=== PATIENT | male | born 1935 | race American Indian/Alaskan Native ===

== ENCOUNTER 2018-03-29 14:57 | Inpatient (IN) | payer MEDICARE ==
[2018-03-29] MEDS ORDERED: Sodium Chloride 0.9% 1,000 ML IV ONE (15:58)
--- NOTE | 2018-03-29 16:42 | RAD ---
Date of service: 03/29/2018 PROCEDURE: CHEST RADIOGRAPH, 1 VIEW HISTORY: SOB COMPARISON: None available. FINDINGS: LUNGS: Right lower lobe infiltrate/airspace disease. PLEURA: No pneumothorax or pleural fluid seen. CARDIOVASCULAR: No aortic atherosclerotic calcification present. No radiographic findings to suggest acute or significant cardiovascular disease. OSSEOUS STRUCTURES: No significant abnormalities. VISUALIZED UPPER ABDOMEN: Normal. OTHER FINDINGS: None. IMPRESSION: Right lower lobe infiltrate.
[2018-03-29 16:54] LABS: BASO % 0.5 % (0.0-2.0); EOS # 0.1 K/uL (0.0-0.7); EOS % 0.8 % (0.0-4.0); HEMOGLOBIN 10.1 g/dL (12.0-18.0); LYMPH # 0.5 K/uL (1.0-4.3); MEAN CELL VOLUME 81.8 fL (80.0-94.0); MEAN CORPUSCULAR HGB CONC 31.7 g/dL (33.0-37.0); MONO # 0.6 K/uL (0.0-0.8); MONO % 7.3 % (0.0-10.0); NEUT # 7.3 K/uL (1.8-7.0); NEUT % 85.4 % (50.0-75.0); PLATELET COUNT 275 K/uL (130-400); RED CELL DISTRIBUTION WIDTH 15.5 % (11.5-14.5); WHITE BLOOD COUNT 8.6 K/uL (4.8-10.8)
[2018-03-29 17:10] LABS: ALT/SGPT < 6 U/L (21-72); AST/SGOT 19 U/L (17-59); BLOOD UREA NITROGEN 15 mg/dL (9-20); CALCIUM 9.1 mg/dl (8.6-10.4); GFR NON-AFRICAN AMERICAN > 60
--- NOTE | 2018-03-29 17:19 | C.PDOC ---
History Of Present Illness 83 y/o male,w/PMhx of HTN, COPD, and hypercholesterolemia, brought to ER by ambulance with neighbor for failure tor thrive for the past several weeks. 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 Patient has poor appetite with poor PO intake and constipation. Patient states that his vision is deteriorating and his neighbor reports periods of confusion and disorientation. He has difficulty taking care of himself and walking. Neighbor states that she is taking care of him because he cannot manage for himself. Contrary to triage, patient denies SOB, CP, fever, chills, and pain. Time Seen by Provider: 03/29/18 15:47 Chief Complaint (Nursing): Shortness Of Breath History Per: Patient History/Exam Limitations: no limitations Onset/Duration Of Symptoms: Days Current Symptoms Are (Timing): Still Present Severity: Moderate Past Medical History Reviewed: Historical Data, Nursing Documentation, Vital Signs Vital Signs: Last Vital Signs Temp 98.5 F 03/29/18 15:01 Pulse 80 03/29/18 17:02 Resp 19 03/29/18 17:02 BP 169/77 H 03/29/18 17:02 Pulse Ox 98 03/29/18 17:02 - Medical History PMH: Hypercholesterolemia, Hyperlipidemia Surgical History: No Surg Hx Family History: States: No Known Family Hx - Social History Hx Alcohol Use: Yes Hx Substance Use: No - Immunization History Hx Tetanus Toxoid Vaccination: No Hx Influenza Vaccination: No Review Of Systems Constitutional: Positive for: Other (decreased appetite). Negative for: Fever, Chills Cardiovascular: Negative for: Chest Pain Respiratory: Negative for: Shortness of Breath Gastrointestinal: Positive for: Constipation. Negative for: Nausea, Vomiting, A bdominal Pain Physical Exam - Physical Exam Appears: Non-toxic, No Acute Distress, Other (comfortable, awake,alert) Skin: Normal Color, Warm, Dry Head: Atraumatic, Normacephalic Eye(s): bilateral: Normal Inspection, Other (sees shadows) Nose: Normal Oral Mucosa: Dry Tongue: Other (thick phlegm on tongue) Neck: Supple Chest: Symmetrical Cardiovascular: Rhythm Irregular (mildly tachycardiac) Respiratory: Normal Breath Sounds, No Rales, No Rhonchi, No Wheezing Gastrointestinal/Abdominal: Normal Exam, Soft, No Tenderness, No Hernia Neurological/Psych: Oriented x3, Normal Speech ED Course And Treatment - Laboratory Results Result Diagrams: 03/29/18 16:44 03/29/18 16:44 Lab Interpretation: Abnormal (Hgb 10.1, Hct 31.9, HCO3 40 Glucose 201) ECG: Interpreted By Me ECG Rhythm: Sinus Rhythm ECG Interpretation: No Acute Changes O2 Sat by Pulse Oximetry: 98 (RA) Pulse Ox Interpretation: Normal - Radiology CXR: Viewed By Me, Read By Radiologist CXR Interpretation: Yes: Infiltrates (RLL) Progress Note: Patient treated with Rocephin and Zithromax in ED. Reevaluation Time: 18:18 Reassessment Condition: Improved - Physician Consult Information Time Consulting Physician Contacted: 18:18 Physician Contacted: Gil Colvin Outcome Of Conversation: Patient to be admitted for treatment of pneumonia and possible placement in a prison facility. Medical Decision Making Medical Decision Making: Plan: --Labs --EKG --CXR --UA --IV Fluids Disposition - Disposition Disposition: HOSPITALIZED Disposition Time: 18:21 Condition: FAIR - POA Present On Arrival: None - Clinical Impression Clinical Impression: Pneumonia - Scribe Statement The provider has reviewed the documentation as recorded by the Milagros Vanegas Provider Attestation: All medical record entries made by the Scribe were at my direction and personally dictated by me. I have reviewed the chart and agree that the record accurately reflects my personal performance of the history, physical exam, medical decision making, and the department course for this patient. I have also personally directed, reviewed, and agree with the discharge instructions and disposition.
--- NOTE | 2018-03-29 17:20 | C.PDOC ---
Time Seen by Provider: 03/29/18 15:47 Chief Complaint (Nursing): Shortness Of Breath Past Medical History Vital Signs: Last Vital Signs Temp 98.5 F 03/29/18 15:01 Pulse 80 03/29/18 17:02 Resp 19 03/29/18 17:02 BP 169/77 H 03/29/18 17:02 Pulse Ox 98 03/29/18 17:02 - Medical History PMH: Hypercholesterolemia, Hyperlipidemia - Social History Hx Alcohol Use: Yes Hx Substance Use: No - Immunization History Hx Tetanus Toxoid Vaccination: No Hx Influenza Vaccination: No ED Course And Treatment - Laboratory Results Result Diagrams: 03/29/18 16:44 03/29/18 16:44 O2 Sat by Pulse Oximetry: 98 Disposition - Disposition
[2018-03-29 18:01] LABS: ANISOCYTOSIS SLIGHT; HYPOCHROMIC SLIGHT; LYMPHOCYTE 7 % (20-40); MONOCYTE 7 % (0-10); NEUTROPHIL 86 % (50-75); PLATELET ESTIMATE NORMAL (NORMAL); TOTAL CELLS COUNTED 100
[2018-03-29 18:02] LABS: POLYCHROMIC SLIGHT
[2018-03-29] MEDS ORDERED: cefTRIAXone IV 1 gm in Dextros 50 ML IVPB ONE (18:16)
[2018-03-29] MEDS ORDERED: Azithromycin 500mg/250ML NS 500 MG/250 ML BAG IV ONE (18:30)
[2018-03-29 19:16] LABS: URINE BILIRUBIN NEGATIVE (NEGATIVE); URINE BLOOD 1+ (NEGATIVE); URINE CLARITY Clear (Clear); URINE COLOR Yellow (YELLOW); URINE GLUCOSE (UA) 1+ mg/dL (Normal); URINE LEUKOCYTE ESTERASE NEG Leu/uL (Negative); URINE PROTEIN 1+ mg/dL (NEGATIVE); URINE UROBILINOGEN NORMAL mg/dL (0.2-1.0)
[2018-03-29] MEDS ORDERED: Azithromycin 500mg/250ML NS 500 MG/250 ML BAG IVPB ONE (19:17)
[2018-03-29] MEDS ORDERED: cefTRIAXone 1 gm 1 GM/100 ML BAG IVPB ONE (19:17)
[2018-03-29] MEDS: Albuterol-Ipratrop 3 mg / 0.5 (3 ml) UD INH SCH (20:42)
[2018-03-29 20:46] LABS: VENOUS BLOOD GAS BASE EXCESS 12.7 mmol/L (0.0-2.0); VENOUS BLOOD GAS PCO2 78 mmHg (40-60); VENOUS BLOOD GAS PO2 34 mm/Hg (30-55); VENOUS BLOOD PH 7.34 (7.32-7.43)
[2018-03-29] MEDS: Rosuvastatin Calcium 2.5 mg Tab PO SCH (21:42)
[2018-03-29] MEDS: Latanoprost 2.5 ml Opht Soln OU SCH (21:43)
[2018-03-29] MEDS: (Novolin R) Insulin Human Regular 100 units/ml vial SC SCH (21:48)
--- NOTE | 2018-03-29 22:32 | CP.PCM.HP ---
Past Patient History - Past Medical History & Family History Past Medical History?: No - Past Social History Smoking Status: Former Smoker - CARDIAC Hx Hypercholesterolemia: Yes - NEUROLOGICAL Other/Comment: Growth in brain, fluid accumulation - HEMATOLOGICAL/ONCOLOGICAL Hx Blood Disorders: No Hx Anemia: Yes - INTEGUMENTARY Hx Dermatological Problems: No - MUSCULOSKELETAL/RHEUMATOLOGICAL Hx Falls: No - GASTROINTESTINAL Hx Gastrointestinal Disorders: No - GENITOURINARY/GYNECOLOGICAL Hx Prostate Problems: Yes - PSYCHIATRIC Hx Substance Use: No - SURGICAL HISTORY Hx Surgeries: Yes - ANESTHESIA Hx Anesthesia: No Hx Anesthesia Reactions: No Hx Malignant Hyperthermia: No Has any member of the family had a problem w/ anesthesia?: No Meds Allergies/Adverse Reactions: Allergies Allergy/AdvReac Type Severity Reaction Status Date / Time No Known Allergies Allergy Unverified 03/29/18 15:02 Results - Vital Signs Recent Vital Signs: Last Vital Signs Temp 98.5 F 03/29/18 15:01 Pulse 69 03/29/18 19:17 Resp 22 03/29/18 21:00 BP 153/78 H 03/29/18 19:17 Pulse Ox 97 03/29/18 21:00 - Labs Result Diagrams: 03/29/18 16:44 03/29/18 16:44 Labs: Laboratory Results - last 24 hr 03/29/18 03/29/18 03/29/18 16:44 16:44 19:05 WBC 8.6 RBC 3.90 L Hgb 10.1 L Hct 31.9 L MCV 81.8 MCH 26.0 L MCHC 31.7 L RDW 15.5 H Plt Count 275 MPV 8.0 Neut % (Auto) 85.4 H Lymph % (Auto) 6.0 L [place] % (Auto) 7.3 Eos % (Auto) 0.8 Baso % (Auto) 0.5 Neut # (Auto) 7.3 H Lymph # (Auto) 0.5 L [place] # (Auto) 0.6 Eos # (Auto) 0.1 Baso # (Auto) 0.0 Neutrophils % (Manual) 86 H Lymphocytes % (Manual) 7 L Monocytes % (Manual) 7 Platelet Estimate Normal Polychromasia Slight Hypochromasia (manual) Slight Anisocytosis (manual) Slight pO2 VBG pH VBG pCO2 VBG HCO3 VBG Total CO2 VBG O2 Sat (Calc) VBG Base Excess VBG Potassium Glucose Lactate Crit Value Called To Crit Value Called By Crit Value Read Back Blood Gas Notified Time Sodium 140 Potassium 4.2 Chloride 94 L Carbon Dioxide 40 H* Anion Gap 10 BUN 15 Creatinine 0.9 Est GFR ( Amer) > 60 Est GFR (Non-Af Amer) > 60 POC Glucose (mg/dL) Random Glucose 201 H Calcium 9.1 Magnesium 1.9 Total Bilirubin 0.5 AST 19 ALT < 6 L Alkaline Phosphatase 66 Total Protein 8.1 Albumin 4.0 Globulin 4.1 H Albumin/Globulin Ratio 1.0 Venous Blood Potassium Urine Color Yellow Urine Clarity Clear Urine pH 5.0 Ur Specific [place] 1.017 Urine Protein 1+ H Urine Glucose (UA) 1+ H Urine Ketones Negative Urine Blood 1+ H Urine Nitrate Negative Urine Bilirubin Negative Urine Urobilinogen Normal Ur Leukocyte Esterase Neg Urine WBC (Auto) 2 Urine RBC (Auto) 3 03/29/18 03/29/18 20:35 21:26 WBC RBC Hgb Hct MCV MCH MCHC RDW Plt Count MPV Neut % (Auto) Lymph % (Auto) [place] % (Auto) Eos % (Auto) Baso % (Auto) Neut # (Auto) Lymph # (Auto) [place] # (Auto) Eos # (Auto) Baso # (Auto) Neutrophils % (Manual) Lymphocytes % (Manual) Monocytes % (Manual) Platelet Estimate Polychromasia Hypochromasia (manual) Anisocytosis (manual) pO2 34 VBG pH 7.34 VBG pCO2 78 H* VBG HCO3 33.9 VBG Total CO2 44.5 H VBG O2 Sat (Calc) 68.2 H VBG Base Excess 12.7 H VBG Potassium 4.9 Glucose 121 H Lactate 1.0 Crit Value Called To Crit Value Called By Gillian molina rcp Crit Value Read Back Y Blood Gas Notified Time 2046 Sodium 143.0 Potassium Chloride 108.0 H Carbon Dioxide Anion Gap BUN Creatinine Est GFR ( Amer) Est GFR (Non-Af Amer) POC Glucose (mg/dL) 111 H Random Glucose Calcium Magnesium Total Bilirubin AST ALT Alkaline Phosphatase Total Protein Albumin Globulin Albumin/Globulin Ratio Venous Blood Potassium 4.9 Urine Color Urine Clarity Urine pH Ur Specific [place] Urine Protein Urine Glucose (UA) Urine Ketones Urine Blood Urine Nitrate Urine Bilirubin Urine Urobilinogen Ur Leukocyte Esterase Urine WBC (Auto) Urine RBC (Auto)
[2018-03-30] MEDS: MethylPREDNISolone 40 mg Vial IVP SCH ×4 (00:46→18:17)
[2018-03-30] MEDS: Albuterol-Ipratrop 3 mg / 0.5 (3 ml) UD INH SCH ×6 (01:47→21:25)
[2018-03-30 01:50] VITALS: RESP 20
--- NOTE | 2018-03-30 07:14 | HP ---
CHIEF COMPLAINT: Dizziness. HISTORY OF PRESENT ILLNESS: This is an 83-year-old male, well known to me, with history of chronic obstructive pulmonary disease, hypertension, hyperlipidemia, and type 2 diabetes. The patient is on multiple medications, and the patient is being cared by a friend who helps him with activities of daily living. The patient in his usual status of health. He is bed bound, home bound, and wheelchair bound, and he is fully dependent on his friend for activities of daily living. The patient had a questionable history of, diagnosed with intracranial mass in his brain with fluid accumulation according to his friend. The patient was early in [facility] in [place]. The friend spoke to me that she brought the patient to the emergency room as the patient has poor appetite, inability to try when he is not taking his medication, diet, and he is constipated. He is also recently deteriorating, and he gets confused and delirious. The patient is not able to take care of his health and his activities of daily living. The patient is more coherent now, and according to the patient, he has been having cough and congestion. He denies any shortness of breath. He denies any nausea, vomiting, or diarrhea. He denies any history of polyuria, polydipsia, or polyphagia. He denies any history of hematuria or pyuria. He has nasal congestion. He denies any sneezing. He denies any abdominal pain, nausea, vomiting, or diarrhea. There is no history of trauma, fall, or loss of consciousness. No history of seizure-like activity. Compliance with medication is questionable. CURRENT MEDICATIONS AT HOME: Ventolin HFA, Flonase nose spray, Xalatan eyedrops, BuSpar, Tessalon, Feosol, multivitamin, Avalide, Pravachol, Xyzal, Proscar, and Tenormin. SOCIAL HISTORY: Nonsmoker. Non-ETOH user. PAST MEDICAL HISTORY: Hypertension, diabetes, COPD, hyperlipidemia, osteoarthritis, and there is a history of questionable mass in the brain. PHYSICAL EXAMINATION: GENERAL: An elderly male, who is awake and alert. He is answering questions, but he has periods of confusion. He is on oxygen. He is in minimal respiratory distress. VITAL SIGNS: Blood pressure 152/78, pulse 69, respiratory rate , and temperature 98. SKIN: Senile turgor. No bruises. No purpura. No petechiae. HEENT: Atraumatic, normocephalic. Negative pallor. Negative jaundice. Right-sided eye has ptosis. Left-sided eye is clear and opens. NECK: Supple. No JVD. No lymph node. No thyromegaly. No carotid bruit. The patient is using accessory muscle of respiration. CHEST WALL: Barrel-shaped chest. No masses. No . No deformity. LUNGS: Bilateral inspiratory and expiratory rhonchi. Decreased air entry with basal crepitation in the right base. CARDIOVASCULAR SYSTEM: PMI not localized. S1 and S2, regular and tachycardic. ABDOMEN: Soft, nontender. Bowel sounds are positive. RECTAL: Enlarged prostate. No masses. No bleed. EXTREMITIES: No clubbing, cyanosis, or edema. Peripheral pulses including bilateral dorsalis pedis and posterior tibial are +2. CENTRAL NERVOUS SYSTEM: The patient is awake and alert. The patient is confused and delirious. ASSESSMENT: 1. Right lower lobe pneumonia. 2. Exacerbation of chronic obstructive pulmonary disease. 3. Hypertension. 4. Type 2 diabetes. PLAN: We will get old record from [facility]. Antibiotics. Also give Zithromax, nebulizers, fluids. Monitor the patient. The patient's CBC, blood gas have all been noted, and the patient will be followed up closely. Gil Colvin MD
[2018-03-30] MEDS: Tiotropium 18 mcg Cap For Inhalation INH SCH (08:20)
[2018-03-30] MEDS: Albuterol HFA 90 mcg/actuation (8 g) INH SCH (08:21)
[2018-03-30] MEDS: Enoxaparin 40 mg Syringe SC SCH (09:55)
[2018-03-30] MEDS: Fluticasone Nasal 50 mcg/Spray NAS SCH (09:56)
[2018-03-30] MEDS: (Novolin R) Insulin Human Regular 100 units/ml vial SC SCH ×4 (09:56→21:07)
[2018-03-30] MEDS: Azithromycin 500 MG in Sodium Chloride 0.9% 250 ML IVPB SCH (12:49)
--- NOTE | 2018-03-30 17:42 | CP.PCM.CON ---
History of Present Illness - History of Present Illness History of Present Illness: 3 year old AA male presents with dizziness to hospital. Pulmonology is being consulted because of evidence of PNA and SOB. He is bed, wheelchair, and home bound and has a friend who helps with his ADL's. According to his friend, the stella damon has a history of an "intracranial mass". The patient was brought to [facility] in [place] recently due to loss of appetite and constipation, as well as change in mental status and confusion. The patient today states that he has continued cough and congestion. He denies SOB, chest pain, headache, N/V/D. His compliance with his home medications is questionable. CXR on 03/29/18 showed right lower lob infiltrate. On physical exam, a barrel shaped chest is noted as well as b/l inspiratory and expiratory rhonchi. There is decreased air entry with basal crepitation in the right base. ABG's show that patient is a chronic retainer and will benefit from BiPAP. Medications: Ventolin HFA, Flonase nose spray, Xalatan eye drops, BuSpar, Tessalon, Feosol, Multivitamin, Avalide, Pravachol, Xyzal, Proscar, and Tenormin PMH: COPD, HTN, Hyperlipidemia, DM2 PSH: Unknown FHx: Unknown Social Hx: Denies smoking, alcohol, illicit drugs Plan: Continue Azithromycin Repeat ABG's BiPAP, nebulizer, peak flow, and fluids to help with breathing/hydration. Past Patient History - Past Medical History & Family History Past Medical History?: No - Past Social History Smoking Status: Former Smoker - CARDIAC Hx Hypercholesterolemia: Yes - NEUROLOGICAL Other/Comment: Growth in brain, fluid accumulation - HEMATOLOGICAL/ONCOLOGICAL Hx Blood Disorders: No Hx Anemia: Yes - INTEGUMENTARY Hx Dermatological Problems: No - MUSCULOSKELETAL/RHEUMATOLOGICAL Hx Falls: No - GASTROINTESTINAL Hx Gastrointestinal Disorders: No - GENITOURINARY/GYNECOLOGICAL Hx Prostate Problems: Yes - PSYCHIATRIC Hx Substance Use: No - SURGICAL HISTORY Hx Surgeries: Yes - ANESTHESIA Hx Anesthesia: No Hx Anesthesia Reactions: No Hx Malignant Hyperthermia: No Has any member of the family had a problem w/ anesthesia?: No Meds Allergies/Adverse Reactions: Allergies Allergy/AdvReac Type Severity Reaction Status Date / Time No Known Allergies Allergy Unverified 03/29/18 15:02 - Medications Medications: Current Medications Albuterol (Ventolin Hfa 90 Mcg/Actuation (8 G)) 2 puff INH RQD [facility] Last Admin: 03/30/18 08:21 Dose: Not Given Albuterol/Ipratropium (Duoneb 3 Mg/0.5 Mg (3 Ml) Ud) 3 ml INH RQ6 [facility] Last Admin: 03/30/18 13:40 Dose: 3 ml Atenolol (Tenormin) 50 mg PO HS [facility] Last Admin: 03/29/18 21:42 Dose: 50 mg Benzonatate (Tessalon Perles) 100 mg PO TID [facility] Last Admin: 03/30/18 13:40 Dose: 100 mg Buspirone HCl (Buspar) 10 mg PO BID [facility] Last Admin: 03/30/18 09:54 Dose: 10 mg Enoxaparin Sodium (Lovenox) 40 mg SC DAILY [facility] Last Admin: 03/30/18 09:55 Dose: 40 mg Ferrous Sulfate (Feosol) 325 mg PO BID [facility] Last Admin: 03/30/18 09:55 Dose: 325 mg Finasteride (Proscar) 5 mg PO HS [facility] Last Admin: 03/29/18 21:42 Dose: 5 mg Fluticasone Propionate (Flonase) 1 spr JUAN MIGUEL DAILY [facility] Last Admin: 03/30/18 09:56 Dose: 1 spr Hydrochlorothiazide (Microzide) 12.5 mg PO DAILY [facility] Last Admin: 03/30/18 09:54 Dose: 12.5 mg Ceftriaxone Sodium 1 gm/ (Sodium Chloride) 100 mls @ 100 mls/hr IVPB DAILY [facility]; Protocol Last Admin: 03/30/18 09:39 Dose: 100 mls/hr Azithromycin 500 mg/ Sodium (Chloride) 250 mls @ 250 mls/hr IVPB DAILY [facility]; Protocol Last Admin: 03/30/18 12:49 Dose: 250 mls/hr Insulin Human Regular (Novolin R) 0 unit SC ACHS [facility]; Protocol Last Admin: 03/30/18 12:26 Dose: 2 units Latanoprost (Xalatan Opht) 0 ml OU HS [facility] Last Admin: 03/29/18 21:43 Dose: 2.5 ml Losartan Potassium (Cozaar) 100 mg PO DAILY [facility] Last Admin: 03/30/18 09:55 Dose: 100 mg Methylprednisolone (Solu-Medrol) 40 mg IVP Q6H [facility] Last Admin: 03/30/18 12:26 Dose: 40 mg Rosuvastatin Calcium (Crestor) 2.5 mg PO HS [facility] Last Admin: 03/29/18 21:42 Dose: 2.5 mg Tiotropium [place] (Spiriva) 18 mcg INH RQ24 [facility] Last Admin: 03/30/18 08:20 Dose: Not Given Results - Vital Signs Recent Vital Signs: Last Vital Signs Temp 97.7 F 03/30/18 16:00 Pulse 80 03/30/18 16:00 Resp 20 03/30/18 16:00 BP 175/86 H 03/30/18 16:00 Pulse Ox 97 03/30/18 16:00 - Labs Result Diagrams: 03/29/18 16:44 03/29/18 16:44 Labs: Laboratory Results - last 24 hr 03/29/18 03/29/18 03/29/18 16:44 19:05 20:35 Neutrophils % (Manual) 86 H Lymphocytes % (Manual) 7 L Monocytes % (Manual) 7 Platelet Estimate Normal Polychromasia Slight Hypochromasia (manual) Slight Anisocytosis (manual) Slight pO2 34 VBG pH 7.34 VBG pCO2 78 H* VBG HCO3 33.9 VBG Total CO2 44.5 H VBG O2 Sat (Calc) 68.2 H VBG Base Excess 12.7 H VBG Potassium 4.9 Sodium 143.0 Chloride 108.0 H Glucose 121 H Lactate 1.0 Crit Value Called To Crit Value Called By Gillian molina rcp Crit Value Read Back Y Blood Gas Notified Time 2046 POC Glucose (mg/dL) Venous Blood Potassium 4.9 Urine Color Yellow Urine Clarity Clear Urine pH 5.0 Ur Specific [place] 1.017 Urine Protein 1+ H Urine Glucose (UA) 1+ H Urine Ketones Negative Urine Blood 1+ H Urine Nitrate Negative Urine Bilirubin Negative Urine Urobilinogen Normal Ur Leukocyte Esterase Neg Urine WBC (Auto) 2 Urine RBC (Auto) 3 03/29/18 03/30/18 03/30/18 21:26 07:15 11:47 Neutrophils % (Manual) Lymphocytes % (Manual) Monocytes % (Manual) Platelet Estimate Polychromasia Hypochromasia (manual) Anisocytosis (manual) pO2 VBG pH VBG pCO2 VBG HCO3 VBG Total CO2 VBG O2 Sat (Calc) VBG Base Excess VBG Potassium Sodium Chloride Glucose Lactate Crit Value Called To Crit Value Called By Crit Value Read Back Blood Gas Notified Time POC Glucose (mg/dL) 111 H 100 180 H Venous Blood Potassium Urine Color Urine Clarity Urine pH Ur Specific [place] Urine Protein Urine Glucose (UA) Urine Ketones Urine Blood Urine Nitrate Urine Bilirubin Urine Urobilinogen Ur Leukocyte Esterase Urine WBC (Auto) Urine RBC (Auto) 03/30/18 16:12 Neutrophils % (Manual) Lymphocytes % (Manual) Monocytes % (Manual) Platelet Estimate Polychromasia Hypochromasia (manual) Anisocytosis (manual) pO2 VBG pH VBG pCO2 VBG HCO3 VBG Total CO2 VBG O2 Sat (Calc) VBG Base Excess VBG Potassium Sodium Chloride Glucose Lactate Crit Value Called To Crit Value Called By Crit Value Read Back Blood Gas Notified Time POC Glucose (mg/dL) 253 H Venous Blood Potassium Urine Color Urine Clarity Urine pH Ur Specific [place] Urine Protein Urine Glucose (UA) Urine Ketones Urine Blood Urine Nitrate Urine Bilirubin Urine Urobilinogen Ur Leukocyte Esterase Urine WBC (Auto) Urine RBC (Auto)
[2018-03-30 20:31] LABS: ABG ALLEN TEST POS; ARTERIAL BLOOD GAS HCO3 32.7 mmol/L (21-28); ARTERIAL BLOOD GAS HEMOGLOBIN 9.4 g/dL (11.7-17.4); ARTERIAL BLOOD GAS O2 SAT 99.8 % (95-98); ARTERIAL BLOOD GAS PCO2 52 mm/Hg (35-45); ARTERIAL BLOOD GAS PH 7.44 (7.35-7.45); ARTERIAL BLOOD GAS PO2 94 mm/Hg (80-100); ARTERIAL BLOOD GAS TCO2 36.9 mmol/L (22-28)
[2018-03-30] MEDS: Rosuvastatin Calcium 2.5 mg Tab PO SCH (21:04)
[2018-03-30] MEDS: Latanoprost 2.5 ml Opht Soln OU SCH (21:07)
[2018-03-31] MEDS: MethylPREDNISolone 40 mg Vial IVP SCH ×4 (00:02→17:55)
--- NOTE | 2018-03-31 00:51 | CP.PCM.PN ---
Subjective - Date & Time of Evaluation Date of Evaluation: 03/30/18 - Subjective Subjective: dictated Objective - Vital Signs/Intake and Output Vital Signs (last 24 hours): Temp Pulse Resp BP Pulse Ox 97.9 F 71 20 157/71 H 98 03/31/18 00:00 03/31/18 00:00 03/31/18 00:00 03/31/18 00:00 03/31/18 00:00 Intake and Output: 03/30/18 03/31/18 18:59 06:59 Intake Total 620 350 Output Total 650 500 Balance -30 -150 - Medications Medications: Current Medications Albuterol (Ventolin Hfa 90 Mcg/Actuation (8 G)) 2 puff INH RQD [facility] Last Admin: 03/30/18 08:21 Dose: Not Given Albuterol/Ipratropium (Duoneb 3 Mg/0.5 Mg (3 Ml) Ud) 3 ml INH RQ6 [facility] Last Admin: 03/30/18 21:25 Dose: 3 ml Atenolol (Tenormin) 50 mg PO HS [facility] Last Admin: 03/30/18 21:04 Dose: 50 mg Benzonatate (Tessalon Perles) 100 mg PO TID [facility] Last Admin: 03/30/18 18:15 Dose: 100 mg Buspirone HCl (Buspar) 10 mg PO BID [facility] Last Admin: 03/30/18 18:15 Dose: 10 mg Enoxaparin Sodium (Lovenox) 40 mg SC DAILY [facility] Last Admin: 03/30/18 09:55 Dose: 40 mg Ferrous Sulfate (Feosol) 325 mg PO BID [facility] Last Admin: 03/30/18 18:15 Dose: 325 mg Finasteride (Proscar) 5 mg PO HS [facility] Last Admin: 03/30/18 21:19 Dose: 5 mg Fluticasone Propionate (Flonase) 1 spr JUAN MIGUEL DAILY [facility] Last Admin: 03/30/18 09:56 Dose: 1 spr Hydrochlorothiazide (Microzide) 12.5 mg PO DAILY [facility] Last Admin: 03/30/18 09:54 Dose: 12.5 mg Ceftriaxone Sodium 1 gm/ (Sodium Chloride) 100 mls @ 100 mls/hr IVPB DAILY [facility]; Protocol Last Admin: 03/30/18 09:39 Dose: 100 mls/hr Azithromycin 500 mg/ Sodium (Chloride) 250 mls @ 250 mls/hr IVPB DAILY [facility]; Protocol Last Admin: 03/30/18 12:49 Dose: 250 mls/hr Insulin Human Regular (Novolin R) 0 unit SC ACHS [facility]; Protocol Last Admin: 03/30/18 21:07 Dose: Not Given Latanoprost (Xalatan Opht) 0 ml OU HS [facility] Last Admin: 03/30/18 21:07 Dose: 2.5 ml Losartan Potassium (Cozaar) 100 mg PO DAILY [facility] Last Admin: 03/30/18 09:55 Dose: 100 mg Methylprednisolone (Solu-Medrol) 40 mg IVP Q6H [facility] Last Admin: 03/31/18 00:02 Dose: 40 mg Rosuvastatin Calcium (Crestor) 2.5 mg PO HS [facility] Last Admin: 03/30/18 21:04 Dose: 2.5 mg Tiotropium [place] (Spiriva) 18 mcg INH RQ24 [facility] Last Admin: 03/30/18 08:20 Dose: Not Given - Labs Labs: 03/29/18 16:44 03/29/18 16:44
[2018-03-31] MEDS: Albuterol-Ipratrop 3 mg / 0.5 (3 ml) UD INH SCH ×4 (01:40→20:21)
--- NOTE | 2018-03-31 05:02 | PN ---
DATE: 03/30/2018 SUBJECTIVE: The patient is coughing, wheezing. He is less short of breath. He is weak. He is on BiPAP. No chest pain. No nausea or vomiting. PHYSICAL EXAMINATION: VITAL SIGNS: Blood pressure 157/71, pulse 71, respiratory rate 20, temperature 97.9. LUNGS: Decreased air entry. Positive rhonchi. CARDIOVASCULAR SYSTEM: PMI not localized. S1 and S2 are regular. ABDOMEN: Soft and nontender. Bowel sounds are positive. ASSESSMENT: 1. Right lower lobe pneumonia. 2. Exacerbation of chronic obstructive pulmonary disease. 3. Diabetes. 4. Hypertension. PLAN: BiPAP, Solu-Medrol, oxygen and antibiotics. Gil Colvin MD
[2018-03-31] MEDS: (Novolin R) Insulin Human Regular 100 units/ml vial SC SCH ×4 (08:30→21:45)
[2018-03-31 08:41] LABS: BASO # 0.1 K/uL (0.0-0.2); BASO % 0.5 % (0.0-2.0); HEMOGLOBIN 10.2 g/dL (12.0-18.0); LYMPH # 0.6 K/uL (1.0-4.3); LYMPH % 5.5 % (20.0-40.0); MEAN CELL VOLUME 80.4 fL (80.0-94.0); MEAN CORPUSCULAR HEMOGLOBIN 25.9 pg (27.0-31.0); MEAN CORPUSCULAR HGB CONC 32.2 g/dL (33.0-37.0); MEAN PLATELET VOLUME 8.5 fL (7.2-11.7); MONO # 0.3 K/uL (0.0-0.8); MONO % 2.6 % (0.0-10.0); NEUT # 9.4 K/uL (1.8-7.0); NEUT % 91.4 % (50.0-75.0); PLATELET COUNT 316 K/uL (130-400); RBC 3.93 Mil/uL (4.40-5.90); RED CELL DISTRIBUTION WIDTH 14.7 % (11.5-14.5); WHITE BLOOD COUNT 10.3 K/uL (4.8-10.8)
[2018-03-31 08:54] LABS: BLOOD UREA NITROGEN 17 mg/dL (9-20); CALCIUM 9.2 mg/dl (8.6-10.4); GFR NON-AFRICAN AMERICAN > 60
[2018-03-31] MEDS: Albuterol HFA 90 mcg/actuation (8 g) INH SCH (09:29)
[2018-03-31] MEDS: Tiotropium 18 mcg Cap For Inhalation INH SCH (09:29)
[2018-03-31 09:52] LABS: LYMPHOCYTE 4 % (20-40); MONOCYTE 1 % (0-10); NEUTROPHIL 95 % (50-75); PLATELET ESTIMATE NORMAL (NORMAL); TOTAL CELLS COUNTED 100
[2018-03-31 09:55] LABS: ANISOCYTOSIS SLIGHT; HYPOCHROMIC SLIGHT; POIKILOCYTOSIS SLIGHT
[2018-03-31] MEDS: Enoxaparin 40 mg Syringe SC SCH (10:53)
[2018-03-31] MEDS: Fluticasone Nasal 50 mcg/Spray NAS SCH (10:54)
[2018-03-31] MEDS: Azithromycin 500 MG in Sodium Chloride 0.9% 250 ML IVPB SCH (11:08)
[2018-03-31] MEDS ORDERED: Potassium Chloride 20 mEq ER Tab PO ONE (12:30)
--- NOTE | 2018-03-31 12:46 | CP.PCM.PN ---
Subjective - Date & Time of Evaluation Date of Evaluation: 03/31/18 Time of Evaluation: 09:20 - Subjective Subjective: Patient seen and examined at bedside, lying down comfortably. Afebrile and in no acute distress. Denies shortness of breath, chest pain, fever. Neutrophils = 95% , Lymphocytes = 4% ABGs 03/30/18: PCO2 = 52 PO2 = 94 HCO3 = 32.7 pH = 7.44 Total CO2 = 36.9 O2 Sat = 99.8 Pt is on BiPAP, has continued mild cough and wheezing. Continue BiPAP, Solumedrol, O2 supplementation, and Abx. Continue to monitor patients ABG's Objective - Vital Signs/Intake and Output Vital Signs (last 24 hours): Temp Pulse Resp BP Pulse Ox 98 F 78 20 185/84 H 96 03/31/18 08:00 03/31/18 08:00 03/31/18 08:00 03/31/18 08:00 03/31/18 08:00 Intake and Output: 03/31/18 03/31/18 06:59 18:59 Intake Total 470 Output Total 950 Balance -480 - Medications Medications: Current Medications Albuterol (Ventolin Hfa 90 Mcg/Actuation (8 G)) 2 puff INH RQD [facility] Last Admin: 03/31/18 09:29 Dose: 2 puff Albuterol/Ipratropium (Duoneb 3 Mg/0.5 Mg (3 Ml) Ud) 3 ml INH RQ6 [facility] Last Admin: 03/31/18 09:28 Dose: 3 ml Atenolol (Tenormin) 50 mg PO HS [facility] Last Admin: 03/30/18 21:04 Dose: 50 mg Benzonatate (Tessalon Perles) 100 mg PO TID [facility] Last Admin: 03/31/18 10:54 Dose: 100 mg Buspirone HCl (Buspar) 10 mg PO BID [facility] Last Admin: 03/31/18 10:54 Dose: 10 mg Enoxaparin Sodium (Lovenox) 40 mg SC DAILY [facility] Last Admin: 03/31/18 10:53 Dose: 40 mg Ferrous Sulfate (Feosol) 325 mg PO BID [facility] Last Admin: 03/31/18 10:54 Dose: 325 mg Finasteride (Proscar) 5 mg PO HS [facility] Last Admin: 03/30/18 21:19 Dose: 5 mg Fluticasone Propionate (Flonase) 1 spr JUAN MIGUEL DAILY [facility] Last Admin: 03/31/18 10:54 Dose: 1 spr Hydrochlorothiazide (Microzide) 12.5 mg PO DAILY [facility] Last Admin: 03/31/18 10:54 Dose: 12.5 mg Ceftriaxone Sodium 1 gm/ (Sodium Chloride) 100 mls @ 100 mls/hr IVPB DAILY [facility]; Protocol Last Admin: 03/31/18 09:33 Dose: 100 mls/hr Azithromycin 500 mg/ Sodium (Chloride) 250 mls @ 250 mls/hr IVPB DAILY [facility]; Protocol Last Admin: 03/31/18 11:08 Dose: 250 mls/hr Insulin Human Regular (Novolin R) 0 unit SC ACHS [facility]; Protocol Last Admin: 03/31/18 12:34 Dose: 3 units Latanoprost (Xalatan Opht) 0 ml OU HS [facility] Last Admin: 03/30/18 21:07 Dose: 2.5 ml Losartan Potassium (Cozaar) 100 mg PO DAILY [facility] Last Admin: 03/31/18 10:54 Dose: 100 mg Methylprednisolone (Solu-Medrol) 40 mg IVP Q6H [facility] Last Admin: 03/31/18 12:31 Dose: 40 mg Rosuvastatin Calcium (Crestor) 2.5 mg PO HS [facility] Last Admin: 03/30/18 21:04 Dose: 2.5 mg Tiotropium [place] (Spiriva) 18 mcg INH RQ24 [facility] Last Admin: 03/31/18 09:29 Dose: 18 mcg - Labs Labs: 03/31/18 08:29 03/31/18 08:29
--- NOTE | 2018-03-31 17:55 | CARD ---
APPROVED REPORT Date of service: 03/29/2018 EKG Measurement Heart [id number] <Conclusion> Normal sinus rhythm Poor R wave progression Borderline EKG
[2018-03-31] MEDS: Latanoprost 2.5 ml Opht Soln OU SCH (21:44)
[2018-03-31] MEDS: Rosuvastatin Calcium 2.5 mg Tab PO SCH (21:44)
--- NOTE | 2018-03-31 23:57 | CP.PCM.PN ---
Subjective - Subjective Subjective: dictated Objective - Vital Signs/Intake and Output Vital Signs (last 24 hours): Temp Pulse Resp BP Pulse Ox 97.9 F 74 20 126/76 96 03/31/18 16:00 03/31/18 16:00 03/31/18 16:00 03/31/18 16:00 03/31/18 16:00 Intake and Output: 03/31/18 04/01/18 18:59 06:59 Intake Total 830 250 Output Total 300 Balance 830 -50 - Medications Medications: Current Medications Albuterol (Ventolin Hfa 90 Mcg/Actuation (8 G)) 2 puff INH RQD [facility] Last Admin: 03/31/18 09:29 Dose: 2 puff Albuterol/Ipratropium (Duoneb 3 Mg/0.5 Mg (3 Ml) Ud) 3 ml INH RQ6 [facility] Last Admin: 03/31/18 20:21 Dose: 3 ml Atenolol (Tenormin) 50 mg PO HS [facility] Last Admin: 03/31/18 21:44 Dose: 50 mg Benzonatate (Tessalon Perles) 100 mg PO TID [facility] Last Admin: 03/31/18 17:43 Dose: 100 mg Buspirone HCl (Buspar) 10 mg PO BID [facility] Last Admin: 03/31/18 17:43 Dose: 10 mg Enoxaparin Sodium (Lovenox) 40 mg SC DAILY [facility] Last Admin: 03/31/18 10:53 Dose: 40 mg Ferrous Sulfate (Feosol) 325 mg PO BID [facility] Last Admin: 03/31/18 17:43 Dose: 325 mg Finasteride (Proscar) 5 mg PO HS [facility] Last Admin: 03/31/18 21:44 Dose: 5 mg Fluticasone Propionate (Flonase) 1 spr JUAN MIGUEL DAILY [facility] Last Admin: 03/31/18 10:54 Dose: 1 spr Hydrochlorothiazide (Microzide) 12.5 mg PO DAILY [facility] Last Admin: 03/31/18 10:54 Dose: 12.5 mg Ceftriaxone Sodium 1 gm/ (Sodium Chloride) 100 mls @ 100 mls/hr IVPB DAILY [facility]; Protocol Last Admin: 03/31/18 09:33 Dose: 100 mls/hr Azithromycin 500 mg/ Sodium (Chloride) 250 mls @ 250 mls/hr IVPB DAILY [facility]; Protocol Last Admin: 03/31/18 11:08 Dose: 250 mls/hr Insulin Human Regular (Novolin R) 0 unit SC ACHS [facility]; Protocol Last Admin: 03/31/18 21:45 Dose: Not Given Latanoprost (Xalatan Opht) 0 ml OU HS [facility] Last Admin: 03/31/18 21:44 Dose: 2.5 ml Losartan Potassium (Cozaar) 100 mg PO DAILY [facility] Last Admin: 03/31/18 10:54 Dose: 100 mg Methylprednisolone (Solu-Medrol) 40 mg IVP Q6H [facility] Last Admin: 03/31/18 17:55 Dose: 40 mg Rosuvastatin Calcium (Crestor) 2.5 mg PO HS [facility] Last Admin: 03/31/18 21:44 Dose: 2.5 mg Tiotropium [place] (Spiriva) 18 mcg INH RQ24 [facility] Last Admin: 03/31/18 09:29 Dose: 18 mcg - Labs Labs: 03/31/18 08:29 03/31/18 08:29
[2018-04-01] MEDS: MethylPREDNISolone 40 mg Vial IVP SCH ×4 (00:03→17:37)
[2018-04-01] MEDS: Albuterol-Ipratrop 3 mg / 0.5 (3 ml) UD INH SCH ×5 (01:15→22:10)
[2018-04-01] MEDS ORDERED: DiphenhydrAMINE 50 mg/ml Inj IVP STA (01:41)
--- NOTE | 2018-04-01 04:14 | PN ---
DATE: 03/31/2018 SUBJECTIVE: The patient, Ben Acevedo, has less shortness of breath, less cough, less wheezing. His blood pressure is coming down. No nausea or vomiting. No fever, no chills. PHYSICAL EXAMINATION: VITAL SIGNS: Blood pressure 126/76, pulse 74, respiratory rate 20, temperature 97.9. LUNGS: Bilateral crepitations. Decreased air entry. CARDIOVASCULAR SYSTEM: PMI not localized. S1 and S2 are regular. ABDOMEN: Soft. ASSESSMENT: 1. Right lower lobe pneumonia. 2. Chronic obstructive pulmonary disease. 3. Hypertension. 4. Type II diabetes. PLAN: Obtain old records. Continue current medication. Monitor the patient. Gil Colvin MD
[2018-04-01] MEDS: Albuterol HFA 90 mcg/actuation (8 g) INH SCH (08:21)
[2018-04-01] MEDS: Tiotropium 18 mcg Cap For Inhalation INH SCH (08:21)
[2018-04-01] MEDS: (Novolin R) Insulin Human Regular 100 units/ml vial SC SCH ×4 (08:30→21:21)
[2018-04-01] MEDS: Azithromycin 500 MG in Sodium Chloride 0.9% 250 ML IVPB SCH (11:00)
[2018-04-01] MEDS: Enoxaparin 40 mg Syringe SC SCH (11:00)
[2018-04-01] MEDS: Fluticasone Nasal 50 mcg/Spray NAS SCH (11:02)
--- NOTE | 2018-04-01 15:30 | CP.PCM.PN ---
Subjective - Date & Time of Evaluation Date of Evaluation: 04/01/18 Time of Evaluation: 15:30 - Subjective Subjective: The patient seen and examined Shortness of breath and cough much improved Off BiPAP during daytime Awake and responsive Continue present treatment Clinically improving Objective - Vital Signs/Intake and Output Vital Signs (last 24 hours): Temp Pulse Resp BP Pulse Ox 97.8 F 71 20 175/81 H 97 04/01/18 11:07 04/01/18 11:07 04/01/18 11:07 04/01/18 11:07 04/01/18 11:07 Intake and Output: 04/01/18 04/01/18 06:59 18:59 Intake Total 370 Output Total 300 Balance 70 - Medications Medications: Current Medications Albuterol (Ventolin Hfa 90 Mcg/Actuation (8 G)) 2 puff INH RQD [facility] Last Admin: 04/01/18 08:21 Dose: Not Given Albuterol/Ipratropium (Duoneb 3 Mg/0.5 Mg (3 Ml) Ud) 3 ml INH RQ6 [facility] Last Admin: 04/01/18 13:18 Dose: 3 ml Atenolol (Tenormin) 50 mg PO HS [facility] Last Admin: 03/31/18 21:44 Dose: 50 mg Benzonatate (Tessalon Perles) 100 mg PO TID [facility] Last Admin: 04/01/18 14:48 Dose: 100 mg Buspirone HCl (Buspar) 10 mg PO BID [facility] Last Admin: 04/01/18 11:01 Dose: 10 mg Enoxaparin Sodium (Lovenox) 40 mg SC DAILY [facility] Last Admin: 04/01/18 11:00 Dose: 40 mg Ferrous Sulfate (Feosol) 325 mg PO BID [facility] Last Admin: 04/01/18 11:00 Dose: 325 mg Finasteride (Proscar) 5 mg PO HS [facility] Last Admin: 03/31/18 21:44 Dose: 5 mg Fluticasone Propionate (Flonase) 1 spr JUAN MIGUEL DAILY [facility] Last Admin: 04/01/18 11:02 Dose: 1 spr Hydrochlorothiazide (Microzide) 12.5 mg PO DAILY [facility] Last Admin: 04/01/18 11:00 Dose: 12.5 mg Ceftriaxone Sodium 1 gm/ (Sodium Chloride) 100 mls @ 100 mls/hr IVPB DAILY [facility]; Protocol Last Admin: 04/01/18 10:00 Dose: 100 mls/hr Azithromycin 500 mg/ Sodium (Chloride) 250 mls @ 250 mls/hr IVPB DAILY [facility]; Protocol Last Admin: 04/01/18 11:00 Dose: 250 mls/hr Insulin Human Regular (Novolin R) 0 unit SC ACHS [facility]; Protocol Last Admin: 04/01/18 12:30 Dose: 2 units Latanoprost (Xalatan Opht) 0 ml OU HS [facility] Last Admin: 03/31/18 21:44 Dose: 2.5 ml Losartan Potassium (Cozaar) 100 mg PO DAILY [facility] Last Admin: 04/01/18 11:00 Dose: 100 mg Methylprednisolone (Solu-Medrol) 40 mg IVP Q6H [facility] Last Admin: 04/01/18 12:45 Dose: 40 mg Rosuvastatin Calcium (Crestor) 2.5 mg PO HS [facility] Last Admin: 03/31/18 21:44 Dose: 2.5 mg Tiotropium [place] (Spiriva) 18 mcg INH RQ24 [facility] Last Admin: 04/01/18 08:21 Dose: Not Given Zolpidem Tartrate (Ambien) 5 mg PO HS PRN PRN Reason: Insomnia - Labs Labs: 03/31/18 08:29 03/31/18 08:29
--- NOTE | 2018-04-01 20:10 | CP.PCM.PN ---
Subjective - Subjective Subjective: dictated Objective - Vital Signs/Intake and Output Vital Signs (last 24 hours): Temp Pulse Resp BP Pulse Ox 98.1 F 70 20 180/86 H 100 04/01/18 16:00 04/01/18 16:00 04/01/18 16:00 04/01/18 16:00 04/01/18 16:00 Intake and Output: 04/01/18 04/02/18 18:59 06:59 Intake Total 550 Balance 550 - Medications Medications: Current Medications Albuterol (Ventolin Hfa 90 Mcg/Actuation (8 G)) 2 puff INH RQD [facility] Last Admin: 04/01/18 08:21 Dose: Not Given Albuterol/Ipratropium (Duoneb 3 Mg/0.5 Mg (3 Ml) Ud) 3 ml INH RQ6 [facility] Last Admin: 04/01/18 13:18 Dose: 3 ml Atenolol (Tenormin) 50 mg PO HS [facility] Last Admin: 03/31/18 21:44 Dose: 50 mg Benzonatate (Tessalon Perles) 100 mg PO TID [facility] Last Admin: 04/01/18 17:36 Dose: 100 mg Buspirone HCl (Buspar) 10 mg PO BID [facility] Last Admin: 04/01/18 17:36 Dose: 10 mg Enoxaparin Sodium (Lovenox) 40 mg SC DAILY [facility] Last Admin: 04/01/18 11:00 Dose: 40 mg Ferrous Sulfate (Feosol) 325 mg PO BID [facility] Last Admin: 04/01/18 17:36 Dose: 325 mg Finasteride (Proscar) 5 mg PO HS [facility] Last Admin: 03/31/18 21:44 Dose: 5 mg Fluticasone Propionate (Flonase) 1 spr JUAN MIGUEL DAILY [facility] Last Admin: 04/01/18 11:02 Dose: 1 spr Hydrochlorothiazide (Microzide) 12.5 mg PO DAILY [facility] Last Admin: 04/01/18 11:00 Dose: 12.5 mg Ceftriaxone Sodium 1 gm/ (Sodium Chloride) 100 mls @ 100 mls/hr IVPB DAILY [facility]; Protocol Last Admin: 04/01/18 10:00 Dose: 100 mls/hr Azithromycin 500 mg/ Sodium (Chloride) 250 mls @ 250 mls/hr IVPB DAILY [facility]; Protocol Last Admin: 04/01/18 11:00 Dose: 250 mls/hr Insulin Human Regular (Novolin R) 0 unit SC ACHS [facility]; Protocol Last Admin: 04/01/18 17:29 Dose: 2 units Latanoprost (Xalatan Opht) 0 ml OU HS [facility] Last Admin: 03/31/18 21:44 Dose: 2.5 ml Losartan Potassium (Cozaar) 100 mg PO DAILY [facility] Last Admin: 04/01/18 11:00 Dose: 100 mg Methylprednisolone (Solu-Medrol) 40 mg IVP Q6H [facility] Last Admin: 04/01/18 17:37 Dose: 40 mg Rosuvastatin Calcium (Crestor) 2.5 mg PO HS [facility] Last Admin: 03/31/18 21:44 Dose: 2.5 mg Tiotropium [place] (Spiriva) 18 mcg INH RQ24 [facility] Last Admin: 04/01/18 08:21 Dose: Not Given Zolpidem Tartrate (Ambien) 5 mg PO HS PRN PRN Reason: Insomnia - Labs Labs: 03/31/18 08:29 03/31/18 08:29
[2018-04-01] MEDS: Latanoprost 2.5 ml Opht Soln OU SCH (21:27)
[2018-04-01] MEDS: Rosuvastatin Calcium 2.5 mg Tab PO SCH (21:27)
[2018-04-02] MEDS: MethylPREDNISolone 40 mg Vial IVP SCH ×4 (00:23→18:11)
--- NOTE | 2018-04-02 00:29 | PN ---
DATE: 04/01/2018 SUBJECTIVE: Ben Acevedo is . He is more alert. He is afebrile. Less cough, less shortness of breath. Blood pressure is still high. No nausea or vomiting. He is tolerating diet. PHYSICAL EXAMINATION VITAL SIGNS: Blood pressure 180/86, pulse 70, respiratory rate 20, temperature 98.1. LUNGS: Bilateral crackles and bilateral rhonchi. CARDIOVASCULAR SYSTEM: S1 and S2 regular. ABDOMEN: Soft, nontender. Bowel sounds positive. ASSESSMENT: 1. Pneumonia, right lower lobe. 2. Chronic obstructive pulmonary disease. 3. Uncontrolled hypertension. 4. Uncontrolled diabetes. PLAN: Antibiotics. Physical therapy. Monitor the patient. Gil Colvin MD
[2018-04-02] MEDS: Albuterol-Ipratrop 3 mg / 0.5 (3 ml) UD INH SCH ×3 (01:38→21:08)
[2018-04-02 07:21] LABS: HEMOGLOBIN 9.9 g/dL (12.0-18.0); LYMPH # 0.4 K/uL (1.0-4.3); LYMPH % 3.4 % (20.0-40.0); MEAN CELL VOLUME 78.6 fL (80.0-94.0); MEAN CORPUSCULAR HEMOGLOBIN 25.6 pg (27.0-31.0); MEAN CORPUSCULAR HGB CONC 32.6 g/dL (33.0-37.0); MONO # 0.5 K/uL (0.0-0.8); NEUT % 92.6 % (50.0-75.0); NRBC % 0.1 % (0.0-2.0); PLATELET COUNT 349 K/uL (130-400); RBC 3.87 Mil/uL (4.40-5.90); RED CELL DISTRIBUTION WIDTH 14.7 % (11.5-14.5); WHITE BLOOD COUNT 11.9 K/uL (4.8-10.8)
[2018-04-02] MEDS: Tiotropium 18 mcg Cap For Inhalation INH SCH (07:30)
[2018-04-02] MEDS: Albuterol HFA 90 mcg/actuation (8 g) INH SCH (07:30)
[2018-04-02 08:01] LABS: ALB/GLOB RATIO 0.9 (1.0-2.1); ALT/SGPT 13 U/L (21-72); AST/SGOT 28 U/L (17-59); BLOOD UREA NITROGEN 32 mg/dL (9-20); CALCIUM 8.8 mg/dl (8.6-10.4); GFR NON-AFRICAN AMERICAN > 60
[2018-04-02] MEDS: (Novolin R) Insulin Human Regular 100 units/ml vial SC SCH ×4 (08:30→22:14)
[2018-04-02 08:47] LABS: LYMPHOCYTE 2 % (20-40); MONOCYTE 4 % (0-10); NEUTROPHIL 94 % (50-75); PLATELET ESTIMATE NORMAL (NORMAL); TOTAL CELLS COUNTED 100
[2018-04-02 08:48] LABS: ANISOCYTOSIS SLIGHT; TOXIC GRANULATION PRESENT
[2018-04-02 08:49] LABS: HYPOCHROMIC SLIGHT; LARGE PLATELETS PRESENT; POLYCHROMIC SLIGHT
[2018-04-02] MEDS: Enoxaparin 40 mg Syringe SC SCH (09:46)
[2018-04-02] MEDS: Fluticasone Nasal 50 mcg/Spray NAS SCH (09:47)
[2018-04-02] MEDS: Azithromycin 500 MG in Sodium Chloride 0.9% 250 ML IVPB SCH (09:56)
[2018-04-02] MEDS: Potassium Chloride 20 mEq/15 ml LIQ UD PO SCH (11:22)
--- NOTE | 2018-04-02 21:49 | CP.PCM.PN ---
Subjective - Subjective Subjective: dictated Objective - Vital Signs/Intake and Output Vital Signs (last 24 hours): Temp Pulse Resp BP Pulse Ox 98.1 F 66 20 184/85 H 96 04/02/18 08:00 04/02/18 08:00 04/02/18 08:00 04/02/18 08:00 04/02/18 08:00 Intake and Output: 04/02/18 04/03/18 18:59 06:59 Intake Total 950 Output Total 300 Balance 650 - Medications Medications: Current Medications Albuterol (Ventolin Hfa 90 Mcg/Actuation (8 G)) 2 puff INH RQD [facility] Last Admin: 04/02/18 07:30 Dose: 2 puff Albuterol/Ipratropium (Duoneb 3 Mg/0.5 Mg (3 Ml) Ud) 3 ml INH RQ6 [facility] Last Admin: 04/02/18 21:08 Dose: 3 ml Atenolol (Tenormin) 100 mg PO HS [facility] Benzonatate (Tessalon Perles) 100 mg PO TID [facility] Last Admin: 04/02/18 18:09 Dose: 100 mg Buspirone HCl (Buspar) 10 mg PO BID [facility] Last Admin: 04/02/18 18:09 Dose: 10 mg Enoxaparin Sodium (Lovenox) 40 mg SC DAILY [facility] Last Admin: 04/02/18 09:46 Dose: 40 mg Ferrous Sulfate (Feosol) 325 mg PO BID [facility] Last Admin: 04/02/18 18:09 Dose: 325 mg Finasteride (Proscar) 5 mg PO HS [facility] Last Admin: 04/01/18 21:27 Dose: 5 mg Fluticasone Propionate (Flonase) 1 spr JUAN MIGUEL DAILY [facility] Last Admin: 04/02/18 09:47 Dose: 1 spr Hydrochlorothiazide (Microzide) 12.5 mg PO DAILY [facility] Last Admin: 04/02/18 09:47 Dose: 12.5 mg Insulin Human Regular (Novolin R) 0 unit SC [facility]; Protocol Last Admin: 04/02/18 16:30 Dose: 3 units Latanoprost (Xalatan Opht) 0 ml OU HS [facility] Last Admin: 04/01/18 21:27 Dose: 2.5 ml Losartan Potassium (Cozaar) 100 mg PO DAILY [facility] Last Admin: 04/02/18 09:47 Dose: 100 mg Methylprednisolone (Solu-Medrol) 40 mg IVP Q6H [facility] Last Admin: 04/02/18 18:11 Dose: 40 mg Potassium Chloride (Potassium Chloride Oral Soln) 40 meq PO DAILY [facility] Stop: 04/04/18 23:59 Last Admin: 04/02/18 11:22 Dose: 40 meq Rosuvastatin Calcium (Crestor) 2.5 mg PO HS [facility] Last Admin: 04/01/18 21:27 Dose: 2.5 mg Tiotropium [place] (Spiriva) 18 mcg INH RQ24 [facility] Last Admin: 04/02/18 07:30 Dose: 18 mcg Zolpidem Tartrate (Ambien) 5 mg PO HS PRN PRN Reason: Insomnia - Labs Labs: 04/02/18 07:05 04/02/18 07:06
[2018-04-02] MEDS: Rosuvastatin Calcium 2.5 mg Tab PO SCH (22:14)
[2018-04-02] MEDS: Latanoprost 2.5 ml Opht Soln OU SCH (22:18)
[2018-04-03] MEDS: Albuterol-Ipratrop 3 mg / 0.5 (3 ml) UD INH SCH ×4 (01:11→19:30)
--- NOTE | 2018-04-03 02:43 | PN ---
DATE: 04/02/2018 SUBJECTIVE: The patient has high blood pressure. He has less cough, less shortness of breath. PHYSICAL EXAMINATION VITAL SIGNS: Blood pressure 184/85, pulse 66, respiratory rate 20, temperature 98.1. LUNGS: Bilateral scattered rales and rhonchi. CARDIOVASCULAR SYSTEM: S1, S2 regular. ABDOMEN: Soft. ASSESSMENT: 1. Right lower lobe pneumonia. 2. Exacerbation of chronic obstructive pulmonary disease. 3. Type 2 diabetes. 4. Hypertension. PLAN: Nitro paste 1 inch. KCl supplementation. Antibiotics. Monitor the patient. Transfer the patient to subacute rehab once the patient has been accepted. Gil Colvin MD
[2018-04-03] MEDS: Tiotropium 18 mcg Cap For Inhalation INH SCH (07:20)
[2018-04-03] MEDS: (Novolin R) Insulin Human Regular 100 units/ml vial SC SCH ×4 (07:56→21:46)
[2018-04-03] MEDS: Enoxaparin 40 mg Syringe SC SCH (10:19)
[2018-04-03] MEDS: Fluticasone Nasal 50 mcg/Spray NAS SCH (10:22)
[2018-04-03] MEDS: MethylPREDNISolone 40 mg Vial IVP SCH (10:24)
[2018-04-03] MEDS: Potassium Chloride 20 mEq/15 ml LIQ UD PO SCH (10:25)
[2018-04-03] MEDS: Albuterol HFA 90 mcg/actuation (8 g) INH SCH (11:20)
--- NOTE | 2018-04-03 17:53 | CP.PCM.PN ---
Subjective - Date & Time of Evaluation Date of Evaluation: 04/03/18 Time of Evaluation: 11:00 - Subjective Subjective: Patient seen and examined at bedside, lying down comfortably. SOB and cough much improved. High blood pressure. Scattered rales and rhonchi still present. Off BiPAP during daytime. Awake and responsive. BP: 176/75 WBC: 11.9 (10.3 on 03/31) Hgb: 9.9 (10.2 on 03/31) Hct: 30.4 K+: 3.3 Glucose: 225 Continue present treatment: nitro paste, KCl, and ABX. Clinically improving. Transfer to subacute rehab once patient has been accepted. Objective - Vital Signs/Intake and Output Vital Signs (last 24 hours): Temp Pulse Resp BP Pulse Ox 97.4 F L 65 20 196/90 H 100 04/03/18 16:00 04/03/18 16:00 04/03/18 16:00 04/03/18 16:00 04/03/18 16:00 Intake and Output: 04/03/18 04/03/18 06:59 18:59 Intake Total 400 Balance 400 - Medications Medications: Current Medications Albuterol (Ventolin Hfa 90 Mcg/Actuation (8 G)) 2 puff INH RQD [facility] Last Admin: 04/03/18 11:20 Dose: Not Given Albuterol/Ipratropium (Duoneb 3 Mg/0.5 Mg (3 Ml) Ud) 3 ml INH RQ6 [facility] Last Admin: 04/03/18 13:13 Dose: Not Given Atenolol (Tenormin) 100 mg PO HS [facility] Last Admin: 04/02/18 22:15 Dose: 100 mg Benzonatate (Tessalon Perles) 100 mg PO TID [facility] Last Admin: 04/03/18 17:45 Dose: 100 mg Buspirone HCl (Buspar) 10 mg PO BID [facility] Last Admin: 04/03/18 17:45 Dose: 10 mg Enoxaparin Sodium (Lovenox) 40 mg SC DAILY [facility] Last Admin: 04/03/18 10:19 Dose: 40 mg Ferrous Sulfate (Feosol) 325 mg PO BID [facility] Last Admin: 04/03/18 17:45 Dose: 325 mg Finasteride (Proscar) 5 mg PO [facility] Last Admin: 04/02/18 22:34 Dose: 5 mg Fluticasone Propionate (Flonase) 1 spr JUAN MIGUEL DAILY [facility] Last Admin: 04/03/18 10:22 Dose: 1 spr Hydrochlorothiazide (Microzide) 12.5 mg PO DAILY [facility] Last Admin: 04/03/18 10:20 Dose: 12.5 mg Insulin Human Regular (Novolin R) 0 unit SC ACHS [facility]; Protocol Last Admin: 04/03/18 17:46 Dose: 3 units Latanoprost (Xalatan Opht) 0 ml OU HS [facility] Last Admin: 04/02/18 22:18 Dose: 2.5 ml Losartan Potassium (Cozaar) 100 mg PO DAILY [facility] Last Admin: 04/03/18 10:20 Dose: 100 mg Methylprednisolone (Solu-Medrol) 40 mg IVP DAILY [facility] Last Admin: 04/03/18 10:24 Dose: 40 mg Potassium Chloride (Potassium Chloride Oral Soln) 40 meq PO DAILY [facility] Stop: 04/04/18 23:59 Last Admin: 04/03/18 10:25 Dose: 40 meq Rosuvastatin Calcium (Crestor) 2.5 mg PO HS [facility] Last Admin: 04/02/18 22:14 Dose: 2.5 mg Tiotropium [place] (Spiriva) 18 mcg INH RQ24 [facility] Last Admin: 04/03/18 07:20 Dose: Not Given Zolpidem Tartrate (Ambien) 5 mg PO HS PRN PRN Reason: Insomnia - Labs Labs: 04/02/18 07:05 04/02/18 07:06
[2018-04-03] MEDS: Rosuvastatin Calcium 2.5 mg Tab PO SCH (21:40)
[2018-04-03] MEDS: Latanoprost 2.5 ml Opht Soln OU SCH (21:40)
--- NOTE | 2018-04-03 21:57 | CP.PCM.PN ---
Subjective - Subjective Subjective: dictated Objective - Vital Signs/Intake and Output Vital Signs (last 24 hours): Temp Pulse Resp BP Pulse Ox 97.4 F L 65 20 196/90 H 100 04/03/18 16:00 04/03/18 16:00 04/03/18 16:00 04/03/18 16:00 04/03/18 16:00 Intake and Output: 04/03/18 04/04/18 18:59 06:59 Intake Total 400 Balance 400 - Medications Medications: Current Medications Albuterol (Ventolin Hfa 90 Mcg/Actuation (8 G)) 2 puff INH RQD [facility] Last Admin: 04/03/18 11:20 Dose: Not Given Albuterol/Ipratropium (Duoneb 3 Mg/0.5 Mg (3 Ml) Ud) 3 ml INH RQ6 [facility] Last Admin: 04/03/18 19:30 Dose: 3 ml Atenolol (Tenormin) 100 mg PO HS [facility] Last Admin: 04/03/18 21:40 Dose: 100 mg Benzonatate (Tessalon Perles) 100 mg PO TID [facility] Last Admin: 04/03/18 17:45 Dose: 100 mg Buspirone HCl (Buspar) 10 mg PO BID [facility] Last Admin: 04/03/18 17:45 Dose: 10 mg Enoxaparin Sodium (Lovenox) 40 mg SC DAILY [facility] Last Admin: 04/03/18 10:19 Dose: 40 mg Ferrous Sulfate (Feosol) 325 mg PO BID [facility] Last Admin: 04/03/18 17:45 Dose: 325 mg Finasteride (Proscar) 5 mg PO HS [facility] Last Admin: 04/03/18 21:41 Dose: Not Given Fluticasone Propionate (Flonase) 1 spr JUAN MIGUEL DAILY [facility] Last Admin: 04/03/18 10:22 Dose: 1 spr Hydrochlorothiazide (Microzide) 12.5 mg PO DAILY [facility] Last Admin: 04/03/18 10:20 Dose: 12.5 mg Insulin Human Regular (Novolin R) 0 unit SC [facility]; Protocol Last Admin: 04/03/18 21:46 Dose: Not Given Latanoprost (Xalatan Opht) 0 ml OU HS [facility] Last Admin: 04/03/18 21:40 Dose: 2.5 ml Losartan Potassium (Cozaar) 100 mg PO DAILY [facility] Last Admin: 04/03/18 10:20 Dose: 100 mg Methylprednisolone (Solu-Medrol) 40 mg IVP DAILY [facility] Last Admin: 04/03/18 10:24 Dose: 40 mg Potassium Chloride (Potassium Chloride Oral Soln) 40 meq PO DAILY [facility] Stop: 04/04/18 23:59 Last Admin: 04/03/18 10:25 Dose: 40 meq Rosuvastatin Calcium (Crestor) 2.5 mg PO HS [facility] Last Admin: 04/03/18 21:40 Dose: 2.5 mg Tiotropium [place] (Spiriva) 18 mcg INH RQ24 [facility] Last Admin: 04/03/18 07:20 Dose: Not Given Zolpidem Tartrate (Ambien) 5 mg PO HS PRN PRN Reason: Insomnia - Labs Labs: 04/02/18 07:05 04/02/18 07:06
[2018-04-04] MEDS: Albuterol-Ipratrop 3 mg / 0.5 (3 ml) UD INH SCH (01:24)
--- NOTE | 2018-04-04 02:26 | PN ---
DATE: 04/03/2018 SUBJECTIVE: The patient, Curtis, is afebrile. He is calm. He is quiet. No nausea or vomiting. No chest pain. Decreased cough, congestion. PHYSICAL EXAMINATION: VITAL SIGNS: BP 196/90, pulse 65, respiratory rate 20, temperature 97.4. LUNGS: Decreased air entry. Positive rhonchi. Positive rales in the right base. CARDIOVASCULAR SYSTEM: S1 and S2 are regular. ABDOMEN: Soft and nontender. Bowel sounds are positive. ASSESSMENT: 1. Right lower lobe pneumonia. 2. Acute exacerbation of chronic obstructive pulmonary disease. 3. Hypertension. 4. Type 2 diabetes. PLAN: Antibiotics. Physical therapy. Rehab. Nursing placement. Gil Colvin MD
[2018-04-04 07:29] VITALS: TEMP 98.6; O2SAT 97
[2018-04-04] MEDS: (Novolin R) Insulin Human Regular 100 units/ml vial SC SCH ×3 (07:55→16:35)
[2018-04-04] MEDS: Albuterol HFA 90 mcg/actuation (8 g) INH SCH (08:11)
[2018-04-04] MEDS: Tiotropium 18 mcg Cap For Inhalation INH SCH (08:11)
[2018-04-04] MEDS: MethylPREDNISolone 40 mg Vial IVP SCH (10:12)
[2018-04-04] MEDS: Fluticasone Nasal 50 mcg/Spray NAS SCH (10:12)
[2018-04-04] MEDS: Enoxaparin 40 mg Syringe SC SCH (10:13)
[2018-04-04] MEDS: Potassium Chloride 20 mEq/15 ml LIQ UD PO SCH (10:13)
[2018-04-04 15:25] VITALS: BP 159/88; PULSE 69
--- NOTE | 2018-04-04 17:33 | CP.PCM.PN ---
Subjective - Date & Time of Evaluation Date of Evaluation: 04/04/18 Time of Evaluation: 11:00 - Subjective Subjective: Patient seen and examined at bedside, lying down comfortably. SOB and cough much improved. BP elevated (170/80) today 04/04/18 Scattered rales and rhonchi present Off BiPAP during daytime Continue Abx, clinically improving Stable from pulmonary standpoint. Patient will be discharged to [facility] Objective - Vital Signs/Intake and Output Vital Signs (last 24 hours): Temp Pulse Resp BP Pulse Ox 98.6 F 69 20 159/88 H 97 04/04/18 15:23 04/04/18 15:23 04/04/18 15:23 04/04/18 15:23 04/04/18 15:23 Intake and Output: 04/04/18 04/04/18 06:59 18:59 Intake Total 500 360 Output Total 750 300 Balance -250 60 - Medications Medications: Current Medications Albuterol (Ventolin Hfa 90 Mcg/Actuation (8 G)) 2 puff INH RQD [facility] Last Admin: 04/04/18 08:11 Dose: Not Given Atenolol (Tenormin) 100 mg PO [facility] Last Admin: 04/03/18 21:40 Dose: 100 mg Azithromycin (Zithromax) 500 mg PO DAILY [facility]; Protocol Last Admin: 04/04/18 13:35 Dose: 500 mg Benzonatate (Tessalon Perles) 100 mg PO TID [facility] Last Admin: 04/04/18 13:35 Dose: 100 mg Buspirone HCl (Buspar) 10 mg PO BID [facility] Last Admin: 04/04/18 10:10 Dose: 10 mg Enoxaparin Sodium (Lovenox) 40 mg SC DAILY [facility] Last Admin: 04/04/18 10:13 Dose: 40 mg Ferrous Sulfate (Feosol) 325 mg PO BID [facility] Last Admin: 04/04/18 10:11 Dose: 325 mg Finasteride (Proscar) 5 mg PO [facility] Last Admin: 04/03/18 21:41 Dose: Not Given Fluticasone Propionate (Flonase) 1 spr JUAN MIGUEL DAILY [facility] Last Admin: 04/04/18 10:12 Dose: 1 spr Hydrochlorothiazide (Microzide) 12.5 mg PO DAILY [facility] Last Admin: 04/04/18 10:13 Dose: 12.5 mg Insulin Human Regular (Novolin R) 0 unit SC ACHS [facility]; Protocol Last Admin: 04/04/18 16:35 Dose: 3 units Latanoprost (Xalatan Opht) 0 ml OU HS [facility] Last Admin: 04/03/18 21:40 Dose: 2.5 ml Losartan Potassium (Cozaar) 100 mg PO DAILY [facility] Last Admin: 04/04/18 10:11 Dose: 100 mg Methylprednisolone (Solu-Medrol) 40 mg IVP DAILY [facility] Last Admin: 04/04/18 10:12 Dose: 40 mg Potassium Chloride (Potassium Chloride Oral Soln) 40 meq PO DAILY [facility] Stop: 04/04/18 23:59 Last Admin: 04/04/18 10:13 Dose: 40 meq Rosuvastatin Calcium (Crestor) 2.5 mg PO HS [facility] Last Admin: 04/03/18 21:40 Dose: 2.5 mg Tiotropium [place] (Spiriva) 18 mcg INH RQ24 [facility] Last Admin: 04/04/18 08:11 Dose: Not Given Zolpidem Tartrate (Ambien) 5 mg PO HS PRN PRN Reason: Insomnia - Labs Labs: 04/02/18 07:05 04/02/18 07:06
--- NOTE | 2018-04-04 17:38 | CP.PCM.PN ---
Objective - Vital Signs/Intake and Output Vital Signs (last 24 hours): Temp Pulse Resp BP Pulse Ox 98.6 F 69 20 159/88 H 97 04/04/18 15:23 04/04/18 15:23 04/04/18 15:23 04/04/18 15:23 04/04/18 15:23 Intake and Output: 04/04/18 04/04/18 06:59 18:59 Intake Total 500 360 Output Total 750 300 Balance -250 60 - Medications Medications: Current Medications Albuterol (Ventolin Hfa 90 Mcg/Actuation (8 G)) 2 puff INH RQD [facility] Last Admin: 04/04/18 08:11 Dose: Not Given Atenolol (Tenormin) 100 mg PO HS [facility] Last Admin: 04/03/18 21:40 Dose: 100 mg Azithromycin (Zithromax) 500 mg PO DAILY [facility]; Protocol Last Admin: 04/04/18 13:35 Dose: 500 mg Benzonatate (Tessalon Perles) 100 mg PO TID [facility] Last Admin: 04/04/18 13:35 Dose: 100 mg Buspirone HCl (Buspar) 10 mg PO BID [facility] Last Admin: 04/04/18 10:10 Dose: 10 mg Enoxaparin Sodium (Lovenox) 40 mg SC DAILY [facility] Last Admin: 04/04/18 10:13 Dose: 40 mg Ferrous Sulfate (Feosol) 325 mg PO BID [facility] Last Admin: 04/04/18 10:11 Dose: 325 mg Finasteride (Proscar) 5 mg PO HS [facility] Last Admin: 04/03/18 21:41 Dose: Not Given Fluticasone Propionate (Flonase) 1 spr JUAN MIGUEL DAILY [facility] Last Admin: 04/04/18 10:12 Dose: 1 spr Hydrochlorothiazide (Microzide) 12.5 mg PO DAILY [facility] Last Admin: 04/04/18 10:13 Dose: 12.5 mg Insulin Human Regular (Novolin R) 0 unit SC [facility]; Protocol Last Admin: 04/04/18 16:35 Dose: 3 units Latanoprost (Xalatan Opht) 0 ml OU HS [facility] Last Admin: 04/03/18 21:40 Dose: 2.5 ml Losartan Potassium (Cozaar) 100 mg PO DAILY [facility] Last Admin: 04/04/18 10:11 Dose: 100 mg Methylprednisolone (Solu-Medrol) 40 mg IVP DAILY [facility] Last Admin: 04/04/18 10:12 Dose: 40 mg Potassium Chloride (Potassium Chloride Oral Soln) 40 meq PO DAILY [facility] Stop: 04/04/18 23:59 Last Admin: 04/04/18 10:13 Dose: 40 meq Rosuvastatin Calcium (Crestor) 2.5 mg PO HS [facility] Last Admin: 04/03/18 21:40 Dose: 2.5 mg Tiotropium [place] (Spiriva) 18 mcg INH RQ24 [facility] Last Admin: 04/04/18 08:11 Dose: Not Given Zolpidem Tartrate (Ambien) 5 mg PO HS PRN PRN Reason: Insomnia - Labs Labs: 04/02/18 07:05 04/02/18 07:06 Assessment and Plan - Assessment and Plan (Free Text) Assessment: 83 year old male admitted with pneumonia, seen and examined. Alert, awake, follows commands. No cough or wheezing, cleared by DR Ruff, discussed with DR Colvin, plan to discharge to rehab on oral antibiotics.
--- NOTE | 2018-04-05 00:24 | CP.PCM.DIS ---
Provider - Provider Date of Admission: 03/29/18 18:22 Attending physician: Gil Colvin MD Consults: 03/29/18 19:07 Pulmonology Consult Routine Comment: Consulting Provider: Dillon Ruff Consulting Physician: Dillon Ruff Reason for Consult: pna Hospital Course - Lab Results Lab Results: Micro Results 03/29/18 19:06 Blood Blood Culture - Final NO GROWTH AFTER 5 DAYS 03/29/18 19:06 Blood Gram Stain - Final TEST NOT PERFORMED 03/29/18 19:05 Blood Blood Culture - Final NO GROWTH AFTER 5 DAYS 03/29/18 19:05 Blood Gram Stain - Final TEST NOT PERFORMED Most Recent Lab Values WBC 11.9 K/uL (4.8-10.8) H 04/02/18 07:05 RBC 3.87 Mil/uL (4.40-5.90) L 04/02/18 07:05 Hgb 9.9 g/dL (12.0-18.0) L 04/02/18 07:05 Hct 30.4 % (35.0-51.0) L 04/02/18 07:05 MCV 78.6 fL (80.0-94.0) L 04/02/18 07:05 MCH 25.6 pg (27.0-31.0) L 04/02/18 07:05 MCHC 32.6 g/dL (33.0-37.0) L 04/02/18 07:05 RDW 14.7 % (11.5-14.5) H 04/02/18 07:05 Plt Count 349 K/uL (130-400) 04/02/18 07:05 MPV 8.0 fL (7.2-11.7) 04/02/18 07:05 Neut % (Auto) 92.6 % (50.0-75.0) H 04/02/18 07:05 Lymph % (Auto) 3.4 % (20.0-40.0) L 04/02/18 07:05 Hale % (Auto) 4.0 % (0.0-10.0) 04/02/18 07:05 Eos % (Auto) 0.0 % (0.0-4.0) 04/02/18 07:05 Baso % (Auto) 0.0 % (0.0-2.0) 04/02/18 07:05 Neut # (Auto) 11.0 K/uL (1.8-7.0) H 04/02/18 07:05 Lymph # (Auto) 0.4 K/uL (1.0-4.3) L 04/02/18 07:05 Hale # (Auto) 0.5 K/uL (0.0-0.8) 04/02/18 07:05 Eos # (Auto) 0.0 K/uL (0.0-0.7) 04/02/18 07:05 Baso # (Auto) 0.0 K/uL (0.0-0.2) 04/02/18 07:05 Neutrophils % (Manual) 94 % (50-75) H 04/02/18 07:05 Lymphocytes % (Manual) 2 % (20-40) L 04/02/18 07:05 Monocytes % (Manual) 4 % (0-10) 04/02/18 07:05 Toxic Granulation Present 04/02/18 07:05 Platelet Estimate Normal (NORMAL) 04/02/18 07:05 Large Platelets Present 04/02/18 07:05 Polychromasia Slight 04/02/18 07:05 Hypochromasia (manual) Slight 04/02/18 07:05 Poikilocytosis (manual Slight 03/31/18 08:29 Anisocytosis (manual) Slight 04/02/18 07:05 Puncture Site Rradial 03/30/18 20:20 pCO2 52 mm/Hg (35-45) H 03/30/18 20:20 pO2 94 mm/Hg (80-100) 03/30/18 20:20 HCO3 32.7 mmol/L (21-28) H 03/30/18 20:20 ABG pH 7.44 (7.35-7.45) 03/30/18 20:20 ABG Total CO2 36.9 mmol/L (22-28) H 03/30/18 20:20 ABG O2 Saturation 99.8 % (95-98) H 03/30/18 20:20 ABG Base Excess 9.9 mmol/L (-2.0-3.0) H 03/30/18 20:20 ABG Hemoglobin 9.4 g/dL (11.7-17.4) L 03/30/18 20:20 ABG Carboxyhemoglobin 1.8 % (0.5-1.5) H 03/30/18 20:20 POC ABG HHb (Measured) 0.2 % (0.0-5.0) 03/30/18 20:20 ABG Methemoglobin 1.6 % (0.0-3.0) 03/30/18 20:20 Joey Test Pos 03/30/18 20:20 VBG pH 7.34 (7.32-7.43) 03/29/18 20:35 VBG pCO2 78 mmHg (40-60) H* 03/29/18 20:35 VBG HCO3 33.9 mmol/L 03/29/18 20:35 VBG Total CO2 44.5 mmol/L (22-28) H 03/29/18 20:35 VBG O2 Sat (Calc) 68.2 % (40-65) H 03/29/18 20:35 VBG Base Excess 12.7 mmol/L (0.0-2.0) H 03/29/18 20:35 VBG Potassium 4.9 mmol/L (3.6-5.2) 03/29/18 20:35 A-a O2 Difference 69.0 mm/Hg 03/30/18 20:20 Respiratory Index 0.7 03/30/18 20:20 Hgb O2 Saturation 96.5 % (95.0-98.0) 03/30/18 20:20 Sodium 143.0 mmol/l (132-148) 03/29/18 20:35 Chloride 108.0 mmol/L (98-107) H 03/29/18 20:35 Glucose 121 mg/dl (75-110) H 03/29/18 20:35 Lactate 1.0 mmol/L (0.7-2.1) 03/29/18 20:35 Liter Flow 3.0 03/30/18 20:20 FiO2 32.0 % 03/30/18 20:20 Crit Value Called To 03/29/18 20:35 Crit Value Called By Gillian molina rcp 03/29/18 20:35 Crit Value Read Back Y 03/29/18 20:35 Blood Gas Notified Time 204603/29/18 20:35 Sodium 138 mmol/L (132-148) 04/02/18 07:06 Potassium 3.3 mmol/L (3.6-5.2) L 04/02/18 07:06 Chloride 92 mmol/L (98-107) L 04/02/18 07:06 Carbon Dioxide 36 mmol/L (22-30) H 04/02/18 07:06 Anion Gap 13 (10-20) 04/02/18 07:06 BUN 32 mg/dL (9-20) H 04/02/18 07:06 Creatinine 1.0 mg/dL (0.8-1.5) 04/02/18 07:06 Est GFR ( Amer) > 60 04/02/18 07:06 Est GFR (Non-Af Amer) > 60 04/02/18 07:06 POC Glucose (mg/dL) 163 mg/dL (65-110) H 04/04/18 11:19 Random Glucose 202 mg/dL (75-110) H 04/02/18 07:06 Calcium 8.8 mg/dl (8.6-10.4) 04/02/18 07:06 Magnesium 1.9 mg/dL (1.6-2.3) 03/29/18 16:44 Total Bilirubin 0.2 mg/dL (0.2-1.3) 04/02/18 07:06 AST 28 U/L (17-59) 04/02/18 07:06 ALT 13 U/L (21-72) L D 04/02/18 07:06 Alkaline Phosphatase 50 U/L (38-126) 04/02/18 07:06 Total Protein 6.2 g/dL (6.3-8.3) L 04/02/18 07:06 Albumin 3.0 g/dL (3.5-5.0) L D 04/02/18 07:06 Globulin 3.2 gm/dL (2.2-3.9) 04/02/18 07:06 Albumin/Globulin Ratio 0.9 (1.0-2.1) L 04/02/18 07:06 Venous Blood Potassium 4.9 mmol/L (3.6-5.2) 03/29/18 20:35 Urine Color Yellow (YELLOW) 03/29/18 19:05 Urine Clarity Clear (Clear) 03/29/18 19:05 Urine pH 5.0 (5.0-8.0) 03/29/18 19:05 Ur Specific Simpson 1.017 (1.003-1.030) 03/29/18 19:05 Urine Protein 1+ mg/dL (NEGATIVE) H 03/29/18 19:05 Urine Glucose (UA) 1+ mg/dL (Normal) H 03/29/18 19:05 Urine Ketones Negative mg/dL (NEGATIVE) 03/29/18 19:05 Urine Blood 1+ (NEGATIVE) H 03/29/18 19:05 Urine Nitrate Negative (NEGATIVE) 03/29/18 19:05 Urine Bilirubin Negative (NEGATIVE) 03/29/18 19:05 Urine Urobilinogen Normal mg/dL (0.2-1.0) 03/29/18 19:05 Ur Leukocyte Esterase Neg Sophie/uL (Negative) 03/29/18 19:05 Urine WBC (Auto) 2 /hpf (0-5) 03/29/18 19:05 Urine RBC (Auto) 3 /hpf (0-3) 03/29/18 19:05 Discharge Plan - Discharge Medications Prescriptions: Levofloxacin [Levaquin] 500 mg PO DAILY 5 Days tablet - Follow Up Plan Condition: FAIR Disposition: REHAB FACILITY/REHAB UNIT Instructions: Levofloxacin (Systemic), Pneumonia, Adult (DC) Referrals: Gil Colvin MD [Staff Provider] -
--- NOTE | 2018-04-05 20:48 | DS ---
DISCHARGE DIAGNOSES: Right lower lobe pneumonia, exacerbation of chronic obstructive pulmonary disease, type 2 diabetes, hypertension, generalized debility. HISTORY OF PRESENT ILLNESS: This is an 83-year-old -[place]i male well known to me with history of COPD, diabetes, hypertension, hyperlipidemia, congestive heart failure who came in because of cough, congestion, fever, chills, rigor, difficulty walking and inability to move. The patient was admitted to the floor and was found to have right lower lobe pneumonia. He was started on antibiotics, blood pressure medication, oxygen, nebulizer and his condition started to improve. He felt better. He is being discharged with outpatient followup. CONDITION UPON DISCHARGE: Stable. PHYSICAL EXAMINATION: VITAL SIGNS: Blood pressure 159/ , pulse 69, respiratory rate 20, temperature 98.6. LABORATORY DATA: Glucose 163, 195. WBC is 11.9, hemoglobin 9.9, hematocrit 30.4, platelets 349. Chemistry is positive for sodium 130, potassium 3.3, chloride 92, bicarb 26, BUN 32, creatinine 1, glucose 184 and 175. CONDITION UPON DISCHARGE: Stable. Gil Colvin MD
== END 2018-04-04 20:09 | DRG 190 ==
LOC: C.ER 14:57 → C.3T 18:22
PROVIDERS: ADMIT Internal Medicine; ATTEND Internal Medicine
DX: J44.0 Chronic obstructive pulmonary disease with (acute) lower respiratory infection (principal); J18.1 Lobar pneumonia, unspecified organism; J44.1 Chronic obstructive pulmonary disease with (acute) exacerbation; I11.0 Hypertensive heart disease with heart failure; E11.65 Type 2 diabetes mellitus with hyperglycemia; I50.9 Heart failure, unspecified; R63.0 Anorexia; E78.5 Hyperlipidemia, unspecified; E78.00 Pure hypercholesterolemia, unspecified; K59.00 Constipation, unspecified; Z74.01 Bed confinement status; Z99.3 Dependence on wheelchair; Z87.891 Personal history of nicotine dependence